=== PATIENT | male | born 1960 | race Caucasian/White ===

== ENCOUNTER 2020-04-17 09:47 | Emergency (ER) | payer OTHER ==
[~2020-04-17] VITALS: Ht 175.3 cm; Wt 86.2 kg
[2020-04-17 09:48] VITALS: BP 158/91
--- NOTE | 2020-04-17 09:54 | NUR ---
Patient ambulated to [facility]. RN evaluating patient at bedside.
--- NOTE | 2020-04-17 09:57 | NUR ---
59 Y/O M C/C LEFT UPPER MOUTH PAIN SINCE SATURDAY. REDNESS NOTED ON THE UPPER LEFT ORAL AREA. PT PRESENTS WITH NO FRONT TEETH. NO TRAUMA. PAIN 02/20. NKA. NO HX. NO RX. NO NVD. PLACED IN CHAIR C. STEADY GAIT.
[2020-04-17 10:21] VITALS: BP 150/84
--- NOTE | 2020-04-17 10:21 | NUR ---
Patient discharged with v/s stable. Written and verbal after care instructions given and explained. Patient alert, oriented and verbalized understanding of instructions. Ambulatory with steady gait. All questions addressed prior to discharge. ID band removed. Patient advised to follow up with PMD. Rx of MOTRIN,AMOXICILLIN,TRAMADOL given. Patient educated on indication of medication including possible reaction and side effects. Opportunity to ask questions provided and answered.
== END 2020-04-17 10:21 | disposition home or self-care (01) ==
LOC: MED 09:47
DX: K04.7 Periapical abscess without sinus (principal); R03.0 Elevated blood-pressure reading, without diagnosis of hypertension
CPT/HCPCS: 99283

== ENCOUNTER 2021-05-11 08:23 | Emergency (ER) | payer OTHER ==
[~2021-05-11] VITALS: Ht 175.3 cm; Wt 99.8 kg
[2021-05-11 08:26] VITALS: BP 142/56
--- NOTE | 2021-05-11 08:30 | NUR ---
PT AMBULATED TO BED 9 WITH STEADY GAIT
--- NOTE | 2021-05-11 08:50 | NUR ---
60/M presents to ED with c/o right hand and arm pain. Patient states he was attempting to lift up a seat in his wifes car using his 3rd digit on his right hand and states "I feel like I ripped something." Patient states 4/10 constant sharp pain that worsens with movement, reports taking Ibuprofen prior to arrival to ED with some relief. Patient able to move bilateral arms appropriately, range of motion in digits on right hand limited due to pain. Pulses and sensation equal bilaterally, cap refill less than 2 seconds.
--- NOTE | 2021-05-11 09:08 | NUR ---
applied wrist splint to right wrist without any issues
[2021-05-11] MEDS ORDERED: IBUP-2213 PO (09:21)
--- NOTE | 2021-05-11 09:30 | NUR ---
Patient discharged with v/s stable. Written and verbal after care instructions about neurapraxia and carpal tunnel syndrome given and explained. Patient alert, oriented and verbalized understanding of instructions. Ambulatory with steady gait. All questions addressed prior to discharge. ID band removed. Patient advised to follow up with PMD. Rx of ibuprofen given. Patient educated on indication of medication including possible reaction and side effects. Opportunity to ask questions provided and answered.
== END 2021-05-11 09:30 | disposition home or self-care (01) ==
LOC: MED 08:23
DX: G62.9 Polyneuropathy, unspecified (principal)
CPT/HCPCS: 99283